=== PATIENT | female | born 1970 | race Caucasian/White ===

== ENCOUNTER → 2017-08-31 | Day surgery (SDC) | payer OTHER ==
[~2017-08-31] VITALS: Ht 144.8 cm; Wt 70.5 kg
[~2017-08-31] MED LIST: ACETAMINOPHEN 1000 MG/100 ML 100 ML IV SCH; BUPIVACAINE/EPINEPHRINE 0.5% PF 30 ML VIAL ONE; BYST5TAB2 PO; CHLORHEXIDINE GLUCONATE 2 % 1 PACK (2 CLOTHS) TOPICAL PRN; DEXAMETHASONE SOD PHOS 4 MG/ML VIAL IV ONE; FAMOTIDINE 20 MG/2 ML VIAL ONE; LACTATED RINGER'S 1000 ML IV PRN; LIDOCAINE HCL 1% 20 ML VIAL ONE; LIDOCAINE HCL 1% PF 5 ML SYRINGE OTHER ONE; METOPROLOL TARTRATE 25 MG TAB PO PRN; MIDAZOLAM HCL 2 MG/2 ML VIAL ONE; ONDANSETRON HCL 4 MG/2 ML VIAL IV ONE; POVIDONE IODINE 5% (ANTISEPSIS KIT) 4 APPLICATIONS EACH NARE PRN; PROPOFOL 200 MG/20 ML AMP IV ONE; SODIUM CHLORID 0.9% 500 ML IV PRN
[2017-08-31 09:05] VITALS: PULSE 91
[2017-08-31 10:15] VITALS: BP 137/98; PULSE 87; RESP 16; TEMP 98.2; O2SAT 99
--- NOTE | 2017-09-25 08:38 | PD.OP ---
cc: Nahun Rausch MD Operative Report Date of Surgery: Aug 31, 2017 Preoperative Diagnosis: Carcinoma of the right breast Postoperative Diagnosis: Carcinoma of the right breast Procedure: Re-excision right breast carcinoma Anesthesia: Local/MAC Surgeon: Nahun Rausch Jump Roll Operator(s): None Operation and Findings: The patient was brought to the operating room and after satisfactory sedation by anesthesia, the right breast was prepped and draped in usual sterile fashion. 0.5% Marcaine with epinephrine was infiltrated in the skin for local anesthesia. The previous curvilinear incision was opened sharply and the seroma evacuated without problem. Using Allis clamps to grasp the various quadrants of the previous lumpectomy site, the breast tissue was resected circumferentially to encompass the entire previous lumpectomy site. Once sided been accomplished with the cautery, the specimen was passed for permanent pathology. Hemostasis was strictly assured after which the subcutaneous tissue and skin were closed with interrupted 4-0 PDS subcuticular stitches. Steri- Strips were applied and the patient was then awakened and taken from the operating room, in satisfactory condition, having tolerated procedure without problem. Estimated blood loss was less than 5 mL's. The instrument, sponge, needle counts were reported as being correct 2 at the end of the procedure. Nahun Rausch MD Sep 25, 2017 08:38
== END | disposition home or self-care (01) ==
LOC: PHSDC 06:07
PROVIDERS: ATTEND Surgery
DX: C50.911 Malignant neoplasm of unspecified site of right female breast (principal); I10 Essential (primary) hypertension; E78.5 Hyperlipidemia, unspecified; F41.9 Anxiety disorder, unspecified
CPT/HCPCS: 00400; 19301; 88307; J0131; J1100; J2250; J2405; J3010; J7120